=== PATIENT | female | born 1980 | race Caucasian/White ===

== ENCOUNTER 2016-12-18 12:13 | Emergency (ER) | payer OTHER ==
--- NOTE | 2016-12-18 13:52 | RAD ---
HISTORY: Trauma, facial swelling COMPARISONS: None TECHNIQUE: Multiple contiguous axial CT scans were obtained of the head without intravenous contrast. FINDINGS: HEMORRHAGE/INFARCT: There is no hemorrhage or acute infarct. MASSES/SHIFT: There is no mass or shift. EXTRA-AXIAL SPACES: There are no extra-axial fluid collections. SULCI AND VENTRICLES: The sulci and ventricles are normal in size and position for the patient's stated age. CEREBRUM: There are no focal parenchymal abnormalities. BRAINSTEM: There are no focal parenchymal abnormalities. CEREBELLUM: There are no focal parenchymal abnormalities. VESSELS: The vessels are grossly normal. PARANASAL SINUSES: The paranasal sinuses are clear. ORBITS: The orbits are unremarkable. BONES AND SOFT TISSUE: No bone or soft tissue abnormalities are noted. OTHER: None IMPRESSION: NO ACUTE INTRACRANIAL PATHOLOGY.
--- NOTE | 2016-12-18 13:54 | RAD ---
HISTORY: Trauma, facial swelling, COMPARISONS: None TECHNIQUE: Multiple contiguous axial CT scans were obtained of the cervical spine without intravenous contrast, with coronal and sagittal multiplanar reformations. FINDINGS: BRAIN: The visualized brain is unremarkable CENTRAL CANAL: Evaluation of the central canal is limited on CT technique, however there is no obvious canalicular mass or epidural hemorrhage. ALIGNMENT: There is straightening of the normal cervical lordosis. VERTEBRAL BODIES: The odontoid process is intact. The atlantoaxial intervals are symmetric. The vertebral bodies are normal in attenuation, without fracture. JOINTS: There is no subluxation or dislocation MUSCULATURE: Unremarkable INTERVERTEBRAL DISCS: There is minimal diffuse loss of intervertebral disc height. AXIAL IMAGES: On axial images, there is no osseous neural foraminal narrowing or central canal stenosis. SOFT TISSUES: The visualized soft tissues of the neck are unremarkable. The prevertebral fat stripe is preserved. OTHER: None. IMPRESSION: STRAIGHTENING OF THE CERVICAL LORDOSIS. NO ACUTE OSSEOUS INJURY TO THE CERVICAL SPINE.
--- NOTE | 2016-12-18 13:56 | RAD ---
INDICATION: Fall with facial trauma. Facial swelling. COMPARISON: CT brain of the same date. TECHNIQUE: Multidetector CT base of the skull through mandible without contrast. Multiplanar reformation. REPORT: Negative for soft tissue hematoma. Bilateral grossly nondisplaced nasal bone fractures. The orbital and maxillary sinus margins, zygomatic arches, lamina papyracea, base of the maxilla, and pterygoid plates are intact. The mandible is intact. Normal temporal mandibular joint alignment. Normally aerated paranasal sinuses and mastoid air spaces. IMPRESSION: Grossly nondisplaced nasal bone fractures.
--- NOTE | 2016-12-18 14:11 | UC ---
Raquel Fuentes Thomas, scribed for Kaye Fallon MD on 12/18/16 at 1320 . Head Injury HPI - HPI Summary HPI Summary: The pt is a 36 y/o F presenting to Urgent Care c/o facial abrasions and swelling to the left side of her face s/p an accidental fall from a standing position two days ago. Pt came today because mild edema started to right side today. During the fall, the patient slipped on ice and she admits to drinking earlier that night. She does not have neck pain upon movement of her neck. The patient has treated the wounds with Vaseline YARN WEIGHT AND STRENGTH TESTER. Pt denies LOC, blood out of eyes/ears/mouth, back pain, headache, vision problems, neck pain, dysphagia, dental pain, dysuria, or any injuries throughout her body. She does not wear contacts. She is accompanied by her . She is not anticoagulated. Unknown last tdap Patients medication reviewed this visit. - History Of Current Complaint Chief Complaint: UCSkin Stated Complaint: FACIAL INJURIES Time Seen by Provider: 12/18/16 13:06 Hx Obtained From: Patient, Family/Lifter Driver ?: No Onset/Duration: Lasting Days - 2, Still Present Severity Currently: Mild Pain Intensity: 2 Pain Scale Used: 0-10 Numeric Aggravating Factor(s): Nothing Alleviating Factor(s): Nothing Associated Signs And Symptoms: Negative: LOC Duration Unknown, Neck Pain, Other - blood out of eyes/ears/mouth, back pain, headache, vision problems, dysphagia , dental pain, dysuria, or any other injuries - Allergies/Home Medications Allergies/Adverse Reactions: Allergies Allergy/AdvReac Type Severity Reaction Status Date / Time Acetaminophen [From Vicodin] Allergy Hives Verified 12/18/16 12:36 Erythromycin Allergy Unknown Verified 12/18/16 12:36 Reaction Details Hydrocodone [From Vicodin] Allergy Hives Verified 12/18/16 12:36 Home Medications: Home Medications Ibuprofen [Advil] 800 mg PO 12/18/16 [History] PMH/Surg Hx/FS Hx/Imm Hx Previously Healthy: Yes - NEGATIVE: HTN, DM - Surgical History Surgical History: Yes Surgery Procedure, Year, and Place: 2002 RT HAND CARPAL TUNNEL [facility]. 1996 GANGLIOBN CYST [facility]. 2007 GALLBLADDER [facility] - Family History Known Family History: Positive: Other - Colon CA Negative: Diabetes - Social History Occupation: Employed Full-time Lives: With Family Alcohol Use: Occasionally Substance Use Type: None Smoking Status (MU): Light Every Day Tobacco Smoker Type: Cigarettes Review of Systems Skin: Other - Facial abrasions ENT: Other - facial edema R>L Musculoskeletal: Other: - Swelling to left side of face Is Patient Immunocompromised?: No All Other Systems Reviewed And Are Negative: Yes Physical Exam Triage Information Reviewed: Yes Appearance: Well-Appearing, Well-Nourished, Signs of Trauma Vital Signs: Initial Vital Signs Temp 99.7 F 12/18/16 12:32 Pulse 112 12/18/16 12:32 Resp 18 12/18/16 12:32 BP 136/81 12/18/16 12:32 Pulse Ox 98 12/18/16 12:32 Vital Signs Reviewed: Yes Eyes: Positive: Other: - DELMI, EOM intact and full Pt with mild lid (upper and lower) edema on left ENT: Positive: Hearing grossly normal, Pharynx normal, TMs normal, Other - TM x2 cler - no hemotymp No septal hematoma b/l No blood oropharynx No broken teeth No pain TMJ b/l mild edema b/l superior to zygomtatic process L>R edema of nose Dental Exam: Normal Neck exam: Normal Neck: Positive: Supple, Nontender, No Lymphadenopathy Respiratory Exam: Normal Respiratory: Positive: Chest non-tender, Lungs clear, Normal breath sounds, No respiratory distress, No accessory muscle use Cardiovascular Exam: Normal Cardiovascular: Positive: RRR, No Murmur Abdomen Description: Positive: Nontender, No Organomegaly, Soft Bowel Sounds: Positive: Present Musculoskeletal Exam: Normal Neurological Exam: Normal Neurological: Positive: Alert Psychological Exam: Normal Skin: Positive: Other - Pt with multiple abraisons to face - includes left forehead, left cheek, scab under left nostril and bridge of now no active bleeding no discharge Diagnostics - Laboratory Diagnostic Studies Completed/Ordered: CT Brain. Interpreted by radiologist. Impression: No acute intracranial pathology. Urgent Care physician has reviewed this report and agrees. CT C-Spine. Interpreted by radiologist. Impression: STRAIGHTENING OF THE CERVICAL LORDOSIS. NO ACUTE OSSEOUS INJURY TO THE CERVICAL SPINE. - Radiology No standard instances Xray Interpretation: Positive (See Comments) Radiology Interpretation Completed By: Radiologist - Patient Name: GAIL WHYTE Medical Record#: [id number] [facility]ing Physician[id number] : 1980 Age: 36 Sex: F Location: [facility] Exam Date: 12/18/16 1318 ADM Status: REG ER Order Information: CT BRAIN WO Accession Number: [id number] CPT: 72956 HISTORY: Trauma, facial swelling COMPARISONS: None TECHNIQUE: Multiple contiguous axial CT scans were obtained of the head without intravenous contrast. FINDINGS: HEMORRHAGE/INFARCT: There is no hemorrhage or acute infarct. MASSES/SHIFT: There is no mass or shift. EXTRA-AXIAL SPACES: There are no extra-axial fluid collections. SULCI AND VENTRICLES: The sulci and ventricles are normal in size and position for the patient's stated age. CEREBRUM: There are no focal parenchymal abnormalities. BRAINSTEM: There are no focal parenchymal abnormalities. CEREBELLUM: There are no focal parenchymal abnormalities. VESSELS: The vessels are grossly normal. PARANASAL SINUSES: The paranasal sinuses are clear. ORBITS: The orbits are unremarkable. BONES AND SOFT TISSUE: No bone or soft tissue abnormalities are noted. OTHER: None IMPRESSION: NO ACUTE INTRACRANIAL PATHOLOGY. <Electronically signed by Juan Carlos Holm MD in [place]> 12/18/16 1349 Dictated By: Juan Carlos Holm MD Dictated Date/Time: 12/18/16 1349 Transcribed Date/Time: 12/18/16 1348 Copy to: Re-Evaluation - Re-Evaluation First Eval Re-Evaluation Time: 13:54 Change: Improved Comment: Reviewed CT imaging with pt. Will start keflex. reviewed wound care. pcp f/u. work note. return precautions. Pt comfortable ad carlie greement with plan Head Injury Course/Dx - Course Course Of Treatment: The pt is a 36 year old female complaining of facial abrasions and swelling to the left side of her face after an accidental fall from a standing position that occurred two days ago. will check imaging. Pt has ice. Pt declined analgesia. PCP reports tdap 2011 - Differential Dx/Diagnosis Provider Diagnoses: facial abraisons. nasal fractures. fall Discharge - Discharge Plan Condition: Stable Disposition: HOME Prescriptions: Cephalexin CAP* [Keflex CAP*] 500 mg PO TID #21 cap Patient Education Materials: Nasal Fracture (ED), Abrasion (ED) Forms: *Gen. Provider Communication, *Work Release Referrals: Maria Isabel Fallon MD [Primary Care Provider] - Additional Instructions: - Okay to alternate ibuprofen (Advil, Motrin) and tylenol every 3 hours for pain. Take with food. Do NOT take for more than 4-5 days - apply a thin layer of antibiotic ointment to your wounds, 2-3 times a day - Okay to apply ice (wrapped in a towel) 20 minutes at a time, 2-3 times a day - Contact your doctor to schedule a follow-up appointment this week Contact your doctor or return with questions or concerns The documentation as recorded by the Raquel gandhi Thomas accurately reflects the service I personally performed and the decisions made by me, Kaye Fallon MD.
[2016-12-18 14:22] VITALS: BP 127/84
== END 2016-12-18 14:20 | disposition home or self-care (01) ==
LOC: UCEAST 12:13
DX: S02.2XXA Fracture of nasal bones, initial encounter for closed fracture (principal); S00.81XA Abrasion of other part of head, initial encounter; W18.30XA Fall on same level, unspecified, initial encounter; Y92.9 Unspecified place or not applicable; F17.210 Nicotine dependence, cigarettes, uncomplicated; Z88.5 Allergy status to narcotic agent; Z88.1 Allergy status to other antibiotic agents; Z88.6 Allergy status to analgesic agent
CPT/HCPCS: 70450; 70486; 72125; 99202; G0463

== ENCOUNTER 2018-03-20 14:05 | Emergency (ER) | payer OTHER ==
[2018-03-20 16:08] VITALS: BP 117/66
--- NOTE | 2018-03-20 16:22 | UC ---
Throat Pain/Nasal Armando HPI - HPI Summary HPI Summary: 37-year-old woman comes in with a chief complaint of 2 weeks of upper respiratory tract infection symptoms. She's had some chest congestion rhinorrhea sinus pressure sore throat and ear pressure. [id number] medicine is not helping very much. At night she is been having a dry cough. At this time denies any chest congestion or shortness of breath. - History of Current Complaint Chief Complaint: UCRespiratory Stated Complaint: CONGESTION, COUGH Time Seen by Provider: 03/20/18 16:01 Hx Last Menstrual Period: 2 wks Pain Intensity: 2 - Allergies/Home Medications Allergies/Adverse Reactions: Allergies Allergy/AdvReac Type Severity Reaction Status Date / Time erythromycin base Allergy Unknown Verified 03/20/18 16:10 Reaction Details hydrocodone Allergy Hives, Verified 03/20/18 16:10 numbness, tingling Home Medications: Home Medications Ibuprofen TAB* [Motrin TAB* 800 MG] 800 mg PO ONCE PRN 03/20/18 [History Confirmed 03/20/18] Tylenol Cold And Flu 2 tab PO Q4H PRN 03/20/18 [History Confirmed 03/20/18] PMH/Surg Hx/FS Hx/Imm Hx Previously Healthy: Yes GI/ History: Gastroesophageal Reflux - Surgical History Surgical History: Yes Surgery Procedure, Year, and Place: 2002 RT HAND CARPAL TUNNEL [facility]. 1996 GANGLIOBN CYST RT HAND. 2007 GALLBLADDER [facility] - Family History Known Family History: Positive: Other - Colon CA Negative: Diabetes - Social History Alcohol Use: Occasionally Substance Use Type: None Smoking Status (MU): Light Every Day Tobacco Smoker Type: Cigarettes Review of Systems All Other Systems Reviewed And Are Negative: Yes Constitutional: Positive: Negative Skin: Positive: Negative Eyes: Positive: Negative ENT: Positive: Sore Throat, Ear Ache, Nasal Discharge, Sinus Congestion, Sinus Pain/Tenderness Respiratory: Positive: Cough Cardiovascular: Positive: Negative Gastrointestinal: Positive: Negative Motor: Positive: Negative Neurovascular: Positive: Negative Musculoskeletal: Positive: Negative Neurological: Positive: Negative Psychological: Positive: Negative Is Patient Immunocompromised?: No Physical Exam Triage Information Reviewed: Yes Appearance: No Pain Distress, Well-Nourished, Ill-Appearing - MILD Vital Signs: Initial Vital Signs Temp 98.9 F 03/20/18 16:04 Pulse 81 03/20/18 16:04 Resp 18 03/20/18 16:04 BP 117/66 03/20/18 16:04 Pulse Ox 99 03/20/18 16:04 Vital Signs Reviewed: Yes Eye Exam: Normal ENT: Positive: Pharyngeal erythema, Nasal congestion, Nasal drainage, TMs normal Neck exam: Normal Neck: Positive: Supple Respiratory: Positive: Lungs clear, Normal breath sounds, No respiratory distress Cardiovascular: Positive: RRR Musculoskeletal Exam: Normal Musculoskeletal: Positive: Strength Intact, ROM Intact Neurological Exam: Normal Neurological: Positive: Alert, Muscle Tone Normal Psychological Exam: Normal Psychological: Positive: Normal Response To Family, Age Appropriate Behavior Skin Exam: Normal Throat Pain/Nasal Course/Dx - Differential Dx/Diagnosis Provider Diagnosis: Sinusitis Discharge - Sign-Out/Discharge Documenting (check all that apply): Patient Departure All imaging exams completed and their final reports reviewed: No Studies - Discharge Plan Condition: Stable Disposition: HOME Prescriptions: Amoxicillin/Clavulanate TAB* [Augmentin TAB 875*] 875 mg PO BID #20 tab Benzonatate CAP* [Tessalon 100 MG CAP*] 100 mg PO TID PRN #20 cap PRN Reason: Cough Patient Education Materials: Sinusitis (ED) Forms: *Work Release Referrals: Maria Isabel Fallon MD [Primary Care Provider] - Additional Instructions: FOLLOW UP WITH YOUR DOCTOR IF NOT COMPLETELY IMPROVED. GET RECHECKED FOR ANY WORSENING OF YOUR CONDITION OR QUESTIONS OR CONCERNS. - Billing Disposition and Condition Condition: STABLE Disposition: Home
== END 2018-03-20 16:30 | disposition home or self-care (01) ==
LOC: UCCORT 14:05
DX: J32.9 Chronic sinusitis, unspecified (principal); F17.210 Nicotine dependence, cigarettes, uncomplicated; Z88.5 Allergy status to narcotic agent; Z88.1 Allergy status to other antibiotic agents
CPT/HCPCS: 99212; G0463